=== PATIENT | male | born 1990 | race Caucasian/White ===

== ENCOUNTER 2017-02-14 12:28 | Emergency (ER) | payer MEDICAID ==
[~2017-02-14] VITALS: Ht 160 cm; Wt 55.0 kg
[2017-02-14] MEDS ORDERED: BACITRACIN/POLYMYXIN B SULFATE OINT 15GM TOP ONE (14:15)
[2017-02-14] MEDS ORDERED: TETANUS, DIPHTHERIA, PERTUSSIS VAC/PF 0.5ML (>7YR OLD) IM ONE (14:15)
[2017-02-14] MEDS ORDERED: IBUPROFEN 600MG TABLET PO ONE (14:15)
[2017-02-14 15:05] VITALS: BP 121/63
== END 2017-02-14 15:44 | disposition home or self-care (01) ==
LOC: ER 15:41
DX: S93.402A Sprain of unspecified ligament of left ankle, initial encounter (principal); S80.212A Abrasion, left knee, initial encounter; Y93.01 Activity, walking, marching and hiking; W01.0XXA Fall on same level from slipping, tripping and stumbling without subsequent striking against object, initial encounter; Y92.828 Other wilderness area as the place of occurrence of the external cause; Z23 Encounter for immunization
CPT/HCPCS: 73610; 90471; 90715; 99284